=== PATIENT | female | born 1990 | race Caucasian/White ===

== ENCOUNTER 2024-08-19 08:35 | Emergency (ER) | payer SELFPAY ==
[~2024-08-19] VITALS: Ht 170.2 cm; Wt 81.6 kg
[2024-08-19 08:45] VITALS: PULSE 85; RESP 16; TEMP 98.5
[2024-08-19] MEDS: SODIUM CHLORIDE 0.9% 1000ML 1,000 ML IV ONE ×2 (09:29→12:30)
[2024-08-19] MEDS: ONDANSETRON HCL INJ 2MG/ML 2ML 2 MG/ML VIAL IV STA (09:29)
[2024-08-19] MEDS ORDERED: Morphine 2mg Syringe 2 MG/ML SYR ONE (10:12)
[2024-08-19] MEDS: METOCLOPRAMIDE HCL 10 MG/2ML VIAL IV ONE (10:30)
[2024-08-19] MEDS: Morphine 4mg INJECTION 4 MG/ML INJ IV ONE (10:30)
[2024-08-19 11:17] LABS: BASOPHILS % 0.2 % (0.0-1.0); HEMATOCRIT 47.4 % (34.2-44.1); HEMOGLOBIN 16.4 g/dL (12.0-16.0); LYMPHOCYTES # (AUTO) 1.1 (1.0-3.2); MEAN CORPUSCULAR HEMOGLOBIN 34.7 pg (28-32); MEAN CORPUSCULAR HGB CONC 34.6 g/dL (31-35); MEAN CORPUSCULAR VOLUME 100.2 fL (81-99); MONOCYTES # (AUTO) 0.6 (0.2-0.8); MONOCYTES % 4.3 % (4.4-11.3); NEUTROPHILS # (AUTO) 12.1 (2.1-6.9); NEUTROPHILS % 87.1 % (38.7-80.0); PLATELET COUNT 372 x10e3/uL (140-360); RED BLOOD COUNT 4.73 x10e6/uL (3.6-5.1); RED CELL DISTRIBUTION WIDTH 13.7 % (11.7-14.4); WHITE BLOOD COUNT 13.87 x10e3/uL (4.8-10.8)
[2024-08-19] MEDS ORDERED: IOPAMIDOL 370 MG/ML 100 ML INFUS..BTL INJ ONE (11:36)
[2024-08-19] MEDS ORDERED: ONDANSETRON ODT4 MG PO (13:36)
[2024-08-19 14:33] VITALS: BP 129/77; PULSE 82; RESP 16; TEMP 99; O2SAT 99
== END 2024-08-19 14:21 | disposition home or self-care (01) ==
LOC: FSED 09:03
DX: R10.13 Epigastric pain (principal); K29.70 Gastritis, unspecified, without bleeding; R11.2 Nausea with vomiting, unspecified; M41.9 Scoliosis, unspecified
CPT/HCPCS: 36415; 74177; 80048; 81025; 83690; 85025; 99283; J2270; J2405; J2765; J7030; Q9967